=== PATIENT | male | born 1980 | race Caucasian/White ===

== ENCOUNTER 2017-06-20 14:20 | Emergency (ER) | payer MEDICARE ==
[2017-06-20 14:22] VITALS: BP 158/101; PULSE 106; RESP 14; TEMP 99.6; O2SAT 97
--- NOTE | 2017-06-20 16:11 | PD ---
HPI Chief Complaint: Psychiatric Symptoms Time Seen by Provider: 14:47 Travel History International Travel<30 days: No Contact w/Intl Traveler<30days: No Traveled to known affect area: No History of Present Illness HPI Pt is a 36-year-old male presenting to the emergency department for psychiatric evaluation. Patient states he is schizoaffective. He states he is hallucinating. Reports compliance with medications. No suicidality. The voices tell him to steal from his father. He denies aggressive behavior, his father is with him and is in agreement. She has a psychiatrist with which to follow, he has not called him. PFSH Past Medical History Schizophrenia: Yes Social History Tobacco Use: Yes Allergies-Medications (Allergen,Severity, Reaction): Coded Allergies: No Known Allergies (Unverified , 05/12/15) Review of Systems Except as stated in HPI: all other systems reviewed are Neg Psychiatric: Positive: Mood Disorder Physical Exam Narrative GENERAL: Well-developed, well-nourished, alert male. Presenting in no acute distress. SKIN: Warm and dry. HEAD: Normocephalic. EYES: No scleral icterus. No injection or drainage. NECK: Supple, trachea midline. No JVD or lymphadenopathy. CARDIOVASCULAR: Regular rate RESPIRATORY: No accessory muscle use. Data Data Last Documented VS Vital Signs Date Time Temp Pulse Resp B/P (MAP) Pulse Ox O2 Delivery O2 Flow Rate FiO2 06/20/17 15:00 06/20/17 14:22 99.6 106 14 97 Orders Orders Psych Screen (06/20/17 14:50) Drug Screen, Random Urine (06/20/17 14:50) Labs Laboratory Tests Test 06/20/17 15:57 Urine Opiates Screen NEG Urine Barbiturates Screen NEG Urine Amphetamines Screen NEG Urine Benzodiazepines Screen NEG Urine Cocaine Screen POS Urine Cannabinoids Screen NEG MDM Medical Decision Making Medical Screen Exam Complete: Yes Emergency Medical Condition: Yes Interpretation(s) Vital Signs Date Time Temp Pulse Resp B/P (MAP) Pulse Ox O2 Delivery O2 Flow Rate FiO2 06/20/17 15:00 06/20/17 14:22 99.6 106 14 158/101 (120) 97 Differential Diagnosis Mood disorder versus substance abuse versus metabolic abnormality versus other Narrative Course Patient is a 36-year-old male presenting to the emergency department for evaluation of hallucinations secondary to schizoaffective disorder. Patient is compliant with his medications per his report. Patient was protocoled in triage. Patient presented to the in triage stating that he did not want to wait and he would follow up with his primary doctor. Again patient had no suicidal ideations. Patient left AMA. Patient Tejas Whittaker has decided to leave the hospital against medical advice. This patient has the capacity to refuse care and understands the risks of leaving, including permanent disability and/or , and has had an opportunity to ask questions about his condition. The patient has been informed that he may return for care at any time, and follow up has been arranged/ advised. Diagnosis Primary Impression: Left against medical advice Bonnie Hoyos Jun 20, 2017 16:11
== END 2017-06-20 16:00 | disposition left against medical advice (07) ==
LOC: NED 14:20
DX: F20.9 Schizophrenia, unspecified (principal); Z72.0 Tobacco use
CPT/HCPCS: 80307; 99283